=== PATIENT | male | born 1945 | race Caucasian/White ===

== ENCOUNTER 2016-09-11 23:59 | Emergency (ER) | payer OTHER, MEDICARE ==
[2016-09-12 00:10] VITALS: O2SAT 96
--- NOTE | 2016-09-12 00:21 | CPEKG ---
Heart Rate: 47 RR Interval: 1277 P-R Interval: 156 QRSD Interval: 116 QT Interval: 476 QTC Interval: 421 P [place]: 43 QRS [place]: 45 T Wave [place]: -17 EKG Severity - ABNORMAL ECG - EKG Impression: SLOW SINUS ARRHYTHMIA, RATE 34-54 EKG Impression: INCOMPLETE RIGHT BUNDLE BRANCH BLOCK Electronically Signed By: Brenda Bloom 13-Sep-2016 00:19:20
[2016-09-12 00:52] LABS: ANION GAP 9 mEq/L (8-16); CALCIUM 9.1 mg/dL (8.5-10.4); CARBON DIOXIDE 27 mEq/l (22-31); CHLORIDE 103 mEq/L (97-110); CREATININE 0.9 mg/dL (0.7-1.3); GLOMERULAR FILTRATION RATE > 60; GLUCOSE 125 mg/dL (70-100); POTASSIUM 4.1 mEq/L (3.5-5.2); SODIUM 139 mEq/L (134-144)
[2016-09-12 00:55] LABS: % IMMATURE GRANULYOCYTES 0.5 % (0.0-1.1); ABSOLUTE IMMATURE GRANULOCYTES 0.02 10^3/uL (0.00-0.10); ADD DIFF? NO; ADD MORPH? NO; ADD SCAN? NO; ATYPICAL LYMPHOCYTE FLAG 30 (0-99); FRAGMENT RBC FLAG 0 (0-99); HEMATOCRIT 41.4 % (40.0-51.0); HEMOGLOBIN 14.9 g/dL (13.7-17.5); LEFT SHIFT FLG 0 (0-99); LIPEMIA HEMOLYSIS FLAG 90 (0-99); MEAN CELL HEMOGLOBIN 33.5 pg (27.9-34.1); MEAN PLATELET VOLUME 10.8 fL (8.7-11.7); PLATELET CLUMPS FLAG 0 (0-99); PLATELET COUNT 193 10^3/uL (150-400); RED BLOOD CELL COUNT 4.45 10^6/uL (4.40-6.38)
[2016-09-12 01:25] LABS: MAGNESIUM 2.1 mg/dL (1.6-2.3)
[2016-09-12 01:30] LABS: TROPONIN I < 0.012 ng/mL (0-0.034)
--- NOTE | 2016-09-12 02:08 | EDPHY ---
H & P Stated Complaint: "I think I may have new onset atrial fibrillation" Time Seen by Provider: 09/12/16 00:54 HPI/ROS: HPI The patient presents with an episode of palpitations that began at about 11:00 p.m. tonight while he was seated watching television. This lasted for about 1 hour and then resolved on its own. He is a retired anesthesiologist and checked his heart rate and auscultated his heart and noticed that his heartbeat was irregularly irregular. By the time he arrived in the emergency room his symptoms had stopped. He said this was associated with a sense of fullness in his chest. When he walked around he felt better. He has been evaluated by Cardiology, [facility], after routine EKG showed a heart rate of 36. He had a a Holter monitor which was normal except for a few PVCs. He had a nuclear stress test that was normal. REVIEW OF SYSTEMS Constitutional: No fever, no chills. Eyes: No discharge. ENT: No sore throat. Cardiovascular: No chest pain, no palpitations. Respiratory: No cough, no shortness of breath. Gastrointestinal: No abdominal pain, no vomiting. Genitourinary: No hematuria. Musculoskeletal: No back pain. Skin: No rashes. Neurological: No headache. PMHx: Hypothyroid, BPH Soc Hx: Retired anesthesiologist PHYSICAL General Appearance: Alert, no distress Eyes: Pupils equal and round no pallor or injection ENT, Mouth: Mucous membranes moist Respiratory: There are no retractions, lungs are clear to auscultation Cardiovascular: Regular rate and rhythm Gastrointestinal: Abdomen is soft and non-tender, no masses, bowel sounds normal Neurological: A&O, moves all extremities Skin: Warm and dry, no rashes Musculoskeletal: Neck is supple non tender Extremities: symmetrical, full range of motion Psychiatric: Patient is oriented X 3, there is no agitation Source: Patient Exam Limitations: No limitations - Personal History Current Tetanus/Diphtheria Vaccine: Yes - Medical/Surgical History Hx Asthma: No Hx Chronic Respiratory Disease: No Hx Diabetes: No Hx Cardiac Disease: Yes Hx Renal Disease: No Hx Cirrhosis: No Hx Alcoholism: No Hx HIV/AIDS: No Hx Splenectomy or Spleen Trauma: No Other PMH: PSHx: 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 PMHx: hypothyroidism, BPH, Skin CA, bradycardia - Social History Smoking Status: Never smoked Constitutional: Initial Vital Signs Temperature (C) 36.5 C 09/12/16 00:06 Heart Rate 64 09/12/16 00:06 Respiratory Rate 20 09/12/16 00:06 Blood Pressure 152/104 H 09/12/16 00:06 O2 Sat (%) 96 09/12/16 00:06 O2 Delivery Mode Room Air O2 (L/minute) 2 Allergies/Adverse Reactions: No Known Allergies Allergy (Unverified 02/12/16 10:42) Home Medications: Medication Instructions Recorded Finasteride 02/12/16 THYROID 02/12/16 Aspirin 81mg (*) 09/12/16 Medical Decision Making - Diagnostics EKG Interpretation: EKG: Complete interpretation has been separately recorded in the [facility] archive. Summary impression: Sinus arrhythmia with rate of about 40 Imaging: Chest x-ray two view shows no cardiomegaly, no effusion, no pulmonary edema, interpreted by me, radiology interpretation is pending. ED Course/Re-evaluation: 12:30 a.m.- Initial patient encounter, plan for basic labs, continuous telemetry monitoring , EKG, chest x-ray. 2:10 a.m.- The patient's labs and studies are unremarkable, except for slightly elevated TSH. He has been asymptomatic throughout his time in the emergency room. I spoke with the allied health professional senior contracts administrator, Dr. Víctor Tariq. He agrees that the patient should have outpatient follow-up for this, however no additional testing in the emergency room is needed. The patient is in agreement with this plan and will be discharged home. Differential Diagnosis: This is a 70-year-old man with history of bradycardia, hypothyroidism on medication who presents from home with about 1 hour of chest fullness and palpitations. He checked his heart rate at the time and it was irregularly irregular. Differential diagnosis includes paroxysmal atrial fibrillation, PACs, PVCs, ACS , new onset CHF, doubt PE given no leg swelling, tachycardia, hypoxia, any risk factors. - Data Points Laboratory Results: Laboratory Results 09/12/16 00:20 09/12/16 00:20 09/12/16 00:20 WBC 4.02 10^3/uL (3.80-9.50) RBC 4.45 10^6/uL (4.40-6.38) Hgb 14.9 g/dL (13.7-17.5) Hct 41.4 % (40.0-51.0) MCV 93.0 fL (81.5-99.8) MCH 33.5 pg (27.9-34.1) MCHC 36.0 g/dL (32.4-36.7) RDW 12.0 % (11.5-15.2) Plt Count 193 10^3/uL (150-400) MPV 10.8 fL (8.7-11.7) Neut % (Auto) 53.5 % (39.3-74.2) Lymph % (Auto) 28.1 % (15.0-45.0) [place] % (Auto) 13.9 H % (4.5-13.0) Eos % (Auto) 2.5 % (0.6-7.6) Baso % (Auto) 1.5 % (0.3-1.7) Nucleat RBC Rel Count 0.0 % (0.0-0.2) Absolute Neuts (auto) 2.15 10^3/uL (1.70-6.50) Absolute Lymphs (auto) 1.13 10^3/uL (1.00-3.00) Absolute Monos (auto) 0.56 10^3/uL (0.30-0.80) Absolute Eos (auto) 0.10 10^3/uL (0.03-0.40) Absolute Basos (auto) 0.06 10^3/uL (0.02-0.10) Absolute Nucleated RBC 0.00 10^3/uL (0-0.01) Immature Gran % 0.5 % (0.0-1.1) Immature Gran # 0.02 10^3/uL (0.00-0.10) Sodium 139 mEq/L (134-144) Potassium 4.1 mEq/L (3.5-5.2) Chloride 103 mEq/L (97-110) Carbon Dioxide 27 mEq/l (22-31) Anion Gap 9 mEq/L (8-16) BUN 18 mg/dL (7-23) Creatinine 0.9 mg/dL (0.7-1.3) Estimated GFR > 60 Glucose 125 H mg/dL (70-100) Calcium 9.1 mg/dL (8.5-10.4) Phosphorus 4.1 mg/dL (2.5-4.5) Magnesium 2.1 mg/dL (1.6-2.3) Troponin I < 0.012 ng/mL (0-0.034) NT-Pro-B Natriuret Pep 116 pg/mL (0-125) TSH 6.060 H uIU/mL (0.465-4.680) Departure - Departure Disposition: Home, Routine, Self-Care Clinical Impression: Irregular heart beat Condition: Good Instructions: Atrial Fibrillation (ED) Additional Instructions: Please follow-up with the allied health professional next week. You should return to the emergency room if your worse in any way. Your irregular heartbeat could possibly be paroxysmal atrial fibrillation verses premature atrial complexes. Referrals: Tevin Hendrix DO [Primary Care Provider] - As per Instructions Thelma Lagunas PA [Physician Air Tube Releaser] - As per Instructions
[2016-09-12 02:25] VITALS: BP 137/88; PULSE 52; RESP 18; TEMP 97.9
--- NOTE | 2016-09-12 08:58 | DX ---
PA and Lateral Chest September 12, 2016, 0037 Hours Indication: Irregular heartbeat. Comparison: None. Findings: The lungs are well aerated and clear. No pneumothorax, consolidation, or effusion. Heart si ze normal. Minimal degenerative disk disease in the upper thoracic spine. No compression deformity. Impression: Clear lungs. No acute process.
== END 2016-09-12 02:35 | disposition home or self-care (01) ==
DX: I49.9 Cardiac arrhythmia, unspecified (principal); Z79.82 Long term (current) use of aspirin; Z85.828 Personal history of other malignant neoplasm of skin

== ENCOUNTER → 2016-09-25 | Outpatient (CLI) | payer OTHER, MEDICARE | LOC: BHFA 09:15 | PROVIDERS: ATTEND Internal Medicine Cardiovascular Disease | DX: R01.1 Cardiac murmur, unspecified (principal) ==

== ENCOUNTER → 2017-07-29 | Outpatient (CLI) | payer OTHER, MEDICARE | LOC: FCPNEURO 21:30 | PROVIDERS: ATTEND Psychiatry & Neurology Sleep Medicine | DX: G47.33 Obstructive sleep apnea (adult) (pediatric) (principal) ==

== ENCOUNTER → 2018-08-05 | Outpatient (CLI) | payer OTHER, MEDICARE | LOC: BHFA 09:15 | PROVIDERS: ATTEND Internal Medicine Interventional Cardiology | DX: R00.2 Palpitations (principal); I34.0 Nonrheumatic mitral (valve) insufficiency ==

== ENCOUNTER → 2019-02-06 | Outpatient (CLI) | payer OTHER, MEDICARE | LOC: BHFA 09:15 ==